=== PATIENT | female | born 1975 | race Two or more races ===

== ENCOUNTER → 2021-04-06 | Outpatient (CLI) | payer OTHER ==
--- NOTE | 2021-04-06 17:03 | RAD ---
EXAM: Pelvic sonogram. HISTORY: Pain. TECHNIQUE: Transabdominal and transvaginal sonographic imaging of the pelvis was performed. COMPARISON: None. FINDINGS: The uterus measures 8.1 x 6.1 x 3.6 cm. The endometrial stripe measures 10 mm in thickness. The ovaries are normal in size and demonstrate normal blood flow. There are small physiologic antral follicles within both ovaries. There are nabothian cysts within the cervix. There are prominent adne xal vessels suggesting a component of pelvic congestion. There is no pelvic free fluid. IMPRESSION: 1. Prominent adnexal vessels. This may be physiologic or due to pelvic congestion. Correlate with sym ptomatology. 2. Nabothian cysts within the cervix. 3. Otherwise, unremarkable pelvic sonogram. Electronically signed by: Lanette Mohr MD (04/06/2021 5:01 PM) [id number]
== END ==
LOC: US 13:56
PROVIDERS: ATTEND Family Medicine
DX: N88.8 Other specified noninflammatory disorders of cervix uteri (principal)
CPT/HCPCS: 76830; 76856

== ENCOUNTER → 2022-02-21 | Outpatient (CLI) | payer OTHER ==
--- NOTE | 2022-02-21 11:58 | RAD ---
STUDY: CT chest without contrast INDICATION: Follow-up abnormal chest x-ray. Pain. COMPARISON: None available. TECHNIQUE: Helical CT imaging of the chest performed without the use of intravenous contrast. Sagitta l and coronal reformats were obtained. One or more of the following individualized dose reduction techniques were utilized for this examinat ion: 1. Automated exposure control 2. Adjustment of the mA and/or kV according to patient size 3. Use of iterative reconstruction technique. FINDINGS: Lungs: Partially degraded study on account of respiratory motion. No pulmonary nodule, focal airspace infiltrate or pleural effusion. Patent central airways. Vasculature: Nonaneurysmal aorta. Aortic calcific atherosclerosis seen below the diaphragm. Normal ca liber of the main pulmonary artery. The heart is within normal limits for size. Calcific coronary art gayle disease. Mediastinum/addie: No pathologically enlarged lymph nodes. No pericardial effusion. Unremarkable esoph sierra. Neck/axilla/chest wall: Unremarkable thyroid and axilla. Bones: Preacromial unfused ossification centers on the right and left. No acute or aggressive abnorma lity. No advanced spondylosis. Upper abdomen: Small nonobstructing intrarenal stone at the lower pole of the right kidney. There may be a small cyst at the medial left kidney on image 107 series 2. IMPRESSION: 1. Unremarkable lungs with no concerning nodule, infiltrate or pleural effusion. 2. Calcific coronary artery disease. Consider follow-up CT calcium scoring especially given patient age. 3. No significant abnormality of the osseous structures or body wall soft tissues. 4. Incidental small nonobstructing intrarenal stone at the lower pole of the right kidney. Electronically signed by: CATHERINE REYNOLDS MD (02/21/2022 11:56 AM) [facility] [place]
== END ==
LOC: CT 10:46
PROVIDERS: ATTEND Family Medicine
DX: I51.7 Cardiomegaly (principal); I50.33 Acute on chronic diastolic (congestive) heart failure; E78.01 Familial hypercholesterolemia; R93.89 Abnormal findings on diagnostic imaging of other specified body structures; I70.0 Atherosclerosis of aorta; I25.10 Atherosclerotic heart disease of native coronary artery without angina pectoris; N20.0 Calculus of kidney
CPT/HCPCS: 71250